=== PATIENT | female | born 1985 | race Caucasian/White ===

== ENCOUNTER → 2016-11-02 | Outpatient (CLI) | payer OTHER | LOC: HEART 5 10:00 | DX: R07.89 Other chest pain (principal); R42 Dizziness and giddiness; R00.2 Palpitations ==

== ENCOUNTER → 2017-01-10 | Outpatient (CLI) | payer OTHER | LOC: KOH-I 13:02 | DX: R07.81 Pleurodynia (principal); R09.89 Other specified symptoms and signs involving the circulatory and respiratory systems | CPT/HCPCS: 71111 ==

== ENCOUNTER → 2021-04-04 | Outpatient (CLI) | payer BC, OTHER | LOC: EMI 10:00 | DX: R79.89 Other specified abnormal findings of blood chemistry (principal); D35.2 Benign neoplasm of pituitary gland | CPT/HCPCS: 70553; A9577 ==